=== PATIENT | female | born 1985 | race Caucasian/White ===

== ENCOUNTER 2017-04-05 08:12 | Emergency (ER) | payer MEDICAID | END 2017-04-05 08:58 | disposition home or self-care (01) | LOC: D.ER 08:12 | DX: M51.36 Other intervertebral disc degeneration, lumbar region (principal); M51.26 Other intervertebral disc displacement, lumbar region; F17.200 Nicotine dependence, unspecified, uncomplicated ==

== ENCOUNTER 2017-04-10 02:23 | Emergency (ER) | payer MEDICAID | END 2017-04-10 03:09 | disposition home or self-care (01) | LOC: D.ER 02:23 | DX: M51.27 Other intervertebral disc displacement, lumbosacral region (principal); F17.200 Nicotine dependence, unspecified, uncomplicated ==

== ENCOUNTER 2017-12-22 09:15 | Inpatient (IN) | payer MEDICAID ==
[~2017-12-22] VITALS: Ht 172.7 cm; Wt 81.8 kg
[2017-12-22] VITALS (10 sets, daily range): BP systolic 101–122; BP diastolic 53–69; Ht 172.7 cm; Wt 81.8 kg
[2017-12-22] MEDS ORDERED: ZOLOFT25 MG PO (09:21)
[2017-12-22 09:33] LABS: BASOPHILS 0.2 % (0-2); EOSINOPHILS 0.4 % (0-7); HEMATOCRIT 44.1 % (36.0-48.0); HEMOGLOBIN 15.9 g/dL (12-16); IMMATURE GRANULOCYTES 0.3 % (0-5); MCH 32.4 pg (26.0-34.0); MCHC 36.1 g/dL (31.0-37.0); MCV 89.8 fL (80.0-100.0); MONOCYTES 8.8 % (2-11); NEUTROPHILS 74.3 % (40-80); RBC 4.91 10x6/uL (4.00-5.40); WBC 18.2 10x3/uL (4.8-10.8)
[2017-12-22 09:38] LABS: PLATELET COUNT 297 10x3/uL (130-400)
[2017-12-22 09:46] LABS: HCG URINE NEGATIVE (NEGATIVE)
[2017-12-22 09:50] LABS: UDS - AMPHET POSITIVE QUAL (NEGATIVE); UDS - BARB NEGATIVE QUAL (NEGATIVE); UDS - BENZO POSITIVE QUAL (NEGATIVE); UDS - COCAINE POSITIVE QUAL (NEGATIVE); UDS - OPIATE NEGATIVE QUAL (NEGATIVE); UDS - PCP NEGATIVE QUAL (NEGATIVE); UDS - THC POSITIVE QUAL (NEGATIVE)
[2017-12-22 10:01] LABS: APPEARANCE HAZY (CLEAR); COLOR DY (YELLOW)
[2017-12-22 10:02] LABS: BILIRUBIN NEGATIVE (NEGATIVE); GLUCOSE NEGATIVE (NEGATIVE); KETONE NEGATIVE (NEGATIVE); NITRITE POSITIVE (NEGATIVE); PROTEIN 2+ mg/dL (NEGATIVE); SPECIFIC GRAVITY 1.025 (1.005-1.020); UROBILINOGEN NORMAL (NORMAL)
[2017-12-22 10:03] LABS: RED CELLS - URINE 0-5 /hpf (0-5)
[2017-12-22 10:04] LABS: BACTERIA MANY /hpf (NONE SEEN)
[2017-12-22 10:05] LABS: MUCUS <1+ /lpf (NONE SEEN)
[2017-12-22 10:06] LABS: WHITE CELLS - URINE 0-5 /hpf (0-5)
[2017-12-22 10:08] LABS: HYALINE CAST OCC /lpf (NONE SEEN)
[2017-12-22 10:25] LABS: ALBUMIN 4.6 g/dL (3.4-5.0); ANION GAP 16.1 mmol/L (8-16); BILIRUBIN - TOTAL 1.19 mg/dL (0.2-1.3); CALCIUM 9.8 mg/dL (8.5-10.1); CARBON DIOXIDE 25.8 mmol/L (21.0-32.0); CREATININE - SERUM 1.2 mg/dL (0.6-1.3); MAGNESIUM - SERUM 1.8 mg/dL (1.8-2.4); PROTEIN - SERUM 8.4 g/dL (6.4-8.2)
[2017-12-22 10:27] LABS: POTASSIUM - SERUM 2.9 mmol/L (3.5-5.1)
[2017-12-23] VITALS (8 sets, daily range): BP systolic 101–136; BP diastolic 58–76
[2017-12-23 06:38] LABS: BASOPHILS 0.5 % (0-2); HEMATOCRIT 38.5 % (36.0-48.0); HEMOGLOBIN 13.3 g/dL (12-16); LYMPHOCYTES 26.2 % (15-50); MCHC 34.5 g/dL (31.0-37.0); MEAN PLATELET VOLUME 10.5 fL (7.4-10.4); MONOCYTES 8.6 % (2-11); NEUTROPHILS 61.7 % (40-80); RBC 4.16 10x6/uL (4.00-5.40); RDW 12.3 % (11.5-14.5)
[2017-12-23 06:52] LABS: MCV 92.5 fL (80.0-100.0); PLATELET COUNT 192 10x3/uL (130-400); WBC 7.6 10x3/uL (4.8-10.8)
[2017-12-23 07:25] LABS: ALKALINE PHOSPHATASE 84 U/L (46-116); ALT (SGPT) 28 U/L (10-68); BILIRUBIN - TOTAL 1.13 mg/dL (0.2-1.3); CALCIUM 8.6 mg/dL (8.5-10.1); CHLORIDE - SERUM 105 mmol/L (98-107); GLUCOSE 100 mg/dL (74-106); PROTEIN - SERUM 6.4 g/dL (6.4-8.2); SODIUM 143 mmol/L (136-145)
[2017-12-23 07:27] LABS: ALBUMIN 3.4 g/dL (3.4-5.0); CALC OSMOLALITY 283 mosm/kg (275-300); CREATININE - SERUM 0.6 mg/dL (0.6-1.3); POTASSIUM - SERUM 3.5 mmol/L (3.5-5.1); UREA NITROGEN 11 mg/dL (7-18); eGFR NON AFRICAN AMERICAN > 90 mL/min (90-120)
[2017-12-24] VITALS (10 sets, daily range): BP systolic 99–132; BP diastolic 52–82
[2017-12-24 05:49] LABS: BASOPHILS 0.7 % (0-2); EOSINOPHILS 4.3 % (0-7); HEMATOCRIT 41.7 % (36.0-48.0); HEMOGLOBIN 14.3 g/dL (12-16); IMMATURE GRANULOCYTES 0.1 % (0-5); LYMPHOCYTES 27.4 % (15-50); MCH 31.8 pg (26.0-34.0); MCHC 34.3 g/dL (31.0-37.0); MCV 92.9 fL (80.0-100.0); MEAN PLATELET VOLUME 10.3 fL (7.4-10.4); MONOCYTES 6.9 % (2-11); NEUTROPHILS 60.6 % (40-80); PLATELET COUNT 233 10x3/uL (130-400); RBC 4.49 10x6/uL (4.00-5.40); RDW 12.2 % (11.5-14.5); WBC 7.2 10x3/uL (4.8-10.8)
[2017-12-24 06:04] LABS: ALBUMIN 3.7 g/dL (3.4-5.0); ALKALINE PHOSPHATASE 83 U/L (46-116); ALT (SGPT) 35 U/L (10-68); BILIRUBIN - TOTAL 0.58 mg/dL (0.2-1.3); CALCIUM 8.9 mg/dL (8.5-10.1); CARBON DIOXIDE 26.9 mmol/L (21.0-32.0); CHLORIDE - SERUM 104 mmol/L (98-107); POTASSIUM - SERUM 3.5 mmol/L (3.5-5.1); PROTEIN - SERUM 7.1 g/dL (6.4-8.2); SODIUM 141 mmol/L (136-145); eGFR NON AFRICAN AMERICAN 87 mL/min (90-120)
[2017-12-24 06:16] LABS: CALC OSMOLALITY 282 mosm/kg (275-300); CREATININE - SERUM 0.8 mg/dL (0.6-1.3); GLUCOSE 174 mg/dL (74-106); UREA NITROGEN 6 mg/dL (7-18)
[2017-12-24] MEDS ORDERED: NICODERM C1 PATCH .1 TRANSDERM (10:03)
[2017-12-24] MEDS ORDERED: FLORAJEN3 CAPS460 MG PO (10:03)
[2017-12-24] MEDS ORDERED: LEVAQUIN750 MG PO (10:03)
== END 2017-12-24 12:30 | disposition home or self-care (01) | DRG 918 ==
LOC: D.ER 09:15 → D.EDHOLD 14:13
PROVIDERS: Family Medicine
DX: T43.621A Poisoning by amphetamines, accidental (unintentional), initial encounter (principal); F17.203 Nicotine dependence unspecified, with withdrawal; N39.0 Urinary tract infection, site not specified; R41.82 Altered mental status, unspecified; F14.129 Cocaine abuse with intoxication, unspecified; F12.129 Cannabis abuse with intoxication, unspecified; E87.6 Hypokalemia; F32.9 Major depressive disorder, single episode, unspecified